=== PATIENT | female | born 1995 | race African-American/Black ===

== ENCOUNTER 2016-10-13 21:51 | Observation (INO) | payer MEDICAID ==
[~2016-10-13] VITALS: Ht 167.6 cm; Wt 86.2 kg
[2016-10-13 22:50] LABS: BASOPHILS 0.2 % (0-2); EOSINOPHILS 0.2 % (0-7); HEMATOCRIT 41.6 % (36.0-48.0); HEMOGLOBIN 14.7 g/dL (12-16); IMMATURE GRANULOCYTES 0.2 % (0-5); LYMPHOCYTES 24.1 % (15-50); MCH 29.7 pg (26.0-34.0); MCHC 35.3 g/dL (31.0-37.0); MEAN PLATELET VOLUME 11.7 fL (7.4-10.4); NEUTROPHILS 71.3 % (40-80); PLATELET COUNT 200 10x3/uL (130-400); RBC 4.95 10x6/uL (4.00-5.40); RDW 12.5 % (11.5-14.5); WBC 5.3 10x3/uL (4.8-10.8)
[2016-10-13 23:07] LABS: APPEARANCE CLOUDY (CLEAR); BILIRUBIN NEGATIVE (NEGATIVE); COLOR YELLOW (YELLOW); GLUCOSE NEGATIVE (NEGATIVE); KETONE NEGATIVE (NEGATIVE); LEUKOCYTE ESTERASE NEGATIVE (NEGATIVE); NITRITE NEGATIVE (NEGATIVE); PROTEIN 1+ mg/dL (NEGATIVE); UROBILINOGEN NORMAL (NORMAL)
[2016-10-13 23:08] LABS: ALBUMIN 4.3 g/dL (3.4-5.0); ALKALINE PHOSPHATASE 87 U/L (46-116); ALT (SGPT) 20 U/L (10-68); AMYLASE - SERUM 246 U/L (25-115); BILIRUBIN - TOTAL 0.22 mg/dL (0.2-1.3); CALC OSMOLALITY 276 mosm/kg (275-300); CALCIUM 9.5 mg/dL (8.5-10.1); CARBON DIOXIDE 27.1 mmol/L (21.0-32.0); CHLORIDE - SERUM 100 mmol/L (98-107); CREATININE - SERUM 0.8 mg/dL (0.6-1.3); GLUCOSE 107 mg/dL (74-106); HCG - QUANTITATIVE (MATERNAL) 0 mIU/mL; LIPASE 92 U/L (73-393); POTASSIUM - SERUM 3.8 mmol/L (3.5-5.1); PROTEIN - SERUM 9.2 g/dL (6.4-8.2); SODIUM 139 mmol/L (136-145); UREA NITROGEN 9 mg/dL (7-18); eGFR NON AFRICAN AMERICAN > 90 mL/min (90-120)
[2016-10-13 23:11] LABS: WHITE CELLS - URINE 0-5 /hpf (0-5)
[2016-10-13 23:12] LABS: AMORPHOUS SEDIMENT >1+ /lpf (NONE SEEN); BACTERIA MODERATE /hpf (NONE SEEN); GRANULAR CAST RARE /lpf (NONE SEEN); HYALINE CAST OCC /lpf (NONE SEEN); RED CELLS - URINE 0-5 /hpf (0-5)
--- NOTE | 2016-10-14 03:45 | NUR ---
RECEIVED PT VIA STRETCHER FROM ED, PT TO ROOM 1221, PT TRANSFERS SELF TO BED, INFORMED PT THAT I WILL BE IN SHORTLY TO DO ASSESSMENT, PT VERBALIZES UNDERSTANDING, PT ORIENTED TO ROOM, BED IN LOW POSITION, SIDE RAILS X 2, CALL LIGHT IN REACH
--- NOTE | 2016-10-14 04:02 | NUR ---
ADMITTING HISTORY, ASSESSMENT, AND MED REC STARTED
[2016-10-14 04:09] VITALS: BP 136/84; BMI 30.7
[2016-10-14] MEDS ORDERED: ZOFRAN4 MG PO (04:19)
[2016-10-14] MEDS ORDERED: ULTRAM50 MG PO (04:19)
--- NOTE | 2016-10-14 04:48 | NUR ---
ADMITTING HISTORY, ASSESSMENT, AND MED REC COMPLTED, SALINE LOCK IN LEFT AC CONVERTED TO IV, NS HUNG VIA PUMP INFUSING AT 150 ML/HR, PT C/O ABD PAIN, ADM DILAUDID CIERRA PER MD ORDERS, PT DENIES FURTHER NEEDS AT THIS TIME
--- NOTE | 2016-10-14 05:20 | NUR ---
PT RESTING WITH EYES CLOSED, RESP QUIET, NO DISTRESS NOTED, LEFT UNDISTURBED AT THIS TIME
--- NOTE | 2016-10-14 07:00 | NUR ---
SHIFT REPORT TO DAY SHIFT
[2016-10-14 07:47] VITALS: BP 120/73
[2016-10-14 07:50] LABS: LIPASE 70 U/L (73-393)
[2016-10-14 07:57] LABS: AMYLASE - SERUM 141 U/L (25-115)
--- NOTE | 2016-10-14 10:50 | NUR ---
RECEIVED CALL FROM DR. MCCARTHY WITH INSTRUCTIONS TO FEED THE PATIENT AND DISCHARGE HER HOME IF SHE IS ABLE TO TOLERATE. THE ULTRASOUND WAS NEGATIVE. PATIENT GIVEN CREAM OF CHICKEN SOUP, CRACKERS AND SOME GRAPES. SHE REQUESTED OJ TO DRINK. GIVEN.
--- NOTE | 2016-10-14 11:13 | NUR ---
PATIENT REFUSED THE FOODS GIVEN HER. SHE DRANK THE OJ AND STATED THAT HER BELLY WAS HURTING AGAIN. WATER GIVEN. DISCOURAGED ACIDIC DRINKS. ENCOURAGED TO REST AND TRY AGAIN AT LUNCH.
[2016-10-14 12:20] VITALS: Ht 167.6 cm; Wt 86.2 kg
--- NOTE | 2016-10-14 13:31 | NUR ---
PATIENT STATES THAT HER PAIN HAS GONE. SHE ATE SOME OF HER JELLO. HER PARENTS HAVE GONE TO GET HER SOME FOOD THAT SHE LIKES. SHE DIDN'T SEE ANYTHING ON HER TRAY FROM THE KITCHEN THAT SHE LIKED. SHE ASKS IF SHE CAN GO HOME. ADVISED HER THAT SHE CAN SOOM SHE CAN TOLERATE SOME REGULAR FOOD.
[2016-10-14 13:36] VITALS: BP 119/66
--- NOTE | 2016-10-14 14:59 | NUR ---
PATIENT UP TO THE SHOWER. SHE HAS EATEN JELLO WITH FRUIT, YOGURT AND 1/4 OF HER GRILLED CHICKEN SANDWICH. SHE DENIES STOMACH DISCOMFORT AT THIS TIME. SHE'D LIKE TO GO HOME AFTER RESTING A BIT AFTER SHOWER. SHE STATES THAT SHE HAS BEEN SICK/ VOMITING SINCE DAY BEFORE YESTERDAY. SHE ALSO REQUESTED A RX FOR THE PAIN MEDICATION WE ARE GIVING HER. WILL ASK
--- NOTE | 2016-10-14 16:38 | NUR ---
IV SL REMOVED FROM THE LEFT FA. SHE IS RESTING WITHOUT COMPLAINTS. SHE WILL DISCHARGE HOME AFTER SUPPER TONIGHT. CONTINUED TO BE WITHOUT C/O PAIN OR NAUSEA. NO BM TODAY.
--- NOTE | 2016-10-14 16:45 | NUR ---
REVIEWED DISCHARGE INSTRUCTIONS WITH THE PATIENT. ENCOURAGED HER TO MAKE A FOLLOW UP APPT WITH DR. BURTON LATER THIS WEEK OR EARLY NEXT WEEK. SHE STILL HAS ZOFRAN AND ULTRAM AT HOME FROM THE DOCTOR'S VISIT LAST WEEK.
--- NOTE | 2016-10-14 17:29 | NUR ---
PATIENT DISCHARGED HOME WITH FAMILY. SHE REMAINED WITHOUT COMPLAINT.
--- NOTE | 2016-10-15 22:19 | HP ---
PATIENT: YAMINI LIANG MEDICAL RECORD: [id number] ACCOUNT: [id number] LOCATION:[id number] : 94 ADMISSION DATE: 10/14/16 HISTORY AND PHYSICAL EXAMINATION REASON FOR ADMISSION: Abdominal pain and vomiting. HISTORY OF PRESENT ILLNESS: The patient is a 21-year-old -[place] female, 1, who states that she had developed vomiting and diarrhea 2 days prior to this admission. She had 2 loose stools that was rushing continuously, went to the ED at [facility]. Her evaluation there revealed a negative urine test and normal laboratory work including a normal CBC, liver functions with a slight elevation of her lipase in the low 70s. She was felt to have gastroenteritis and was sent out medications for nausea. She continued to have vomiting, went back to the ED yesterday at [facility], but left before being seen and came to [place]. She denies fever or fatty food intolerance. She denies dysuria or vaginal discharge. PAST MEDICAL HISTORY: Preeclampsia with first , essential hypertension, migraine headaches, Chlamydia vaginitis. PAST SURGICAL HISTORY: section. HOME MEDICATIONS: Norvasc 5 mg a day, hydrochlorothiazide 25 mg q.a.m., Vistaril 25 mg at h.s. p.r.n. anxiety, ibuprofen 800 mg t.i.d. p.r.n. pain, albuterol HFA 90 mcg inhaler 1-2 puffs t.i.d. p.r.n. wheezing. SOCIAL HISTORY: She is not a smoker or drinker. FAMILY HISTORY: Mother is in good health, hypertension in her father. No history of breast, ovarian or colon cancer in the immediate family. ALLERGIES: None mentioned. REVIEW OF SYSTEMS: GENERAL: Fatigued for the last 24 hours to 48 hours. Denies fever. HEENT: No recent visual change, sinus congestion, sore throat or headache. RESPIRATORY: No SOB or cough. CARDIAC: No exertional chest pain, claudication or edema. GASTROINTESTINAL: Nausea with recurrent vomiting for 48 hours, better this morning. She had 2 loose stools yesterday, but none last night. Her abdominal pain in the upper quadrant she states is better this morning. Denies hematemesis, history of melena, peptic ulcer disease, gallbladder disease or hepatitis. CARDIAC: No exertional chest pain, claudication or edema. GYNECOLOGICAL: No vaginal bleeding ____ 2 weeks ago and UPT at [facility] is normal. MUSCULOSKELETAL: Occasional arthralgias in her knees and back. INTEGUMENT: No rash or itching. PSYCHIATRIC: Denies depress mood. PHYSICAL EXAMINATION: GENERAL: A 21-year-old -[place] female, stump is in no acute distress and she is n.p.o. VITAL SIGNS: Showed weight of 190 pounds or 86 kg, height is 5 feet 6 inches, HISTORY AND PHYSICAL [id number] YAMINI LIANG BMI is 30.7, temperature is 98.2 Fahrenheit orally, pulse 74 and regular, respirations were 18, blood pressure was 146/118 on admission. O2 sat is 97%. HEENT: Eyes are clear and nonicteric. Oropharynx unremarkable. NECK: No bruits or masses. CHEST: Clear. HEART: Regular rate without MGR. PMI appropriate. ABDOMEN: Soft, minimally tender in the right upper quadrant. No rebound. Bowel sounds are active. RECTAL: Deferred. EXTREMITIES: No CC&E. INTEGUMENTARY: No rash or icterus. LABORATORY DATA: Showed H&H of 14.7 and 41.6, white count was 5300 with normal diff, glucose 107, BUN and creatinine 9 and 0.8. Electrolytes are normal. Liver functions are normal. Amylase is 246, which was elevated; lipase is 92 and normal range. Urinalysis shows moderate bacteria, clue cells. ASSESSMENT: 1. Upper quadrant abdominal pain with hyperamylasemia. 2. History of hypertension. Blood pressure currently elevated. PLAN: N.p.o., IV fluids, further workup pending clinical course. TRANSINT:[id number] Voice Confirmation ID: [id number] DOCUMENT ID: [id number] MALISSA MCCARTHY MD at 2219 CC: [id number] DICTATION DATE: 10/14/16822 ROLLER SETTER: 10/14/16953 DIS IN 10/14/16 [facility] [address] [facility] [place] [address]
== END 2016-10-14 17:32 | disposition home or self-care (01) ==
LOC: D.ER 21:51 → D.WS 10-14 02:59 → D.M2 10-14 02:59 → OBSVTIME 10-14 03:00 → D.WS 10-14 03:24
PROVIDERS: Family Medicine; ADMIT Family Medicine
DX: R10.9 Unspecified abdominal pain (principal); R74.8 Abnormal levels of other serum enzymes; I10 Essential (primary) hypertension